=== PATIENT | female | born 1970 | race Caucasian/White ===

== ENCOUNTER 2018-02-19 09:07 | Emergency (ER) | payer SELFPAY ==
[~2018-02-19] VITALS: Ht 154.9 cm; Wt 62.0 kg
[2018-02-19 09:12] VITALS: BP 109/59
== END 2018-02-19 10:21 | disposition left against medical advice (07) ==
LOC: ER 09:11
DX: M79.602 Pain in left arm (principal); M32.9 Systemic lupus erythematosus, unspecified; Z53.21 Procedure and treatment not carried out due to patient leaving prior to being seen by health care provider